=== PATIENT | female | born 1995 | race Asian ===

== ENCOUNTER 2024-03-03 07:39 | Outpatient (OUT) | payer BC, SELFPAY ==
--- NOTE | 2024-03-03 | US_ITS ---
Patient Name: JAVAN MONTESINOS MR#: [id number] : 1995 Exam Date: 03/03/2024 Ordering Doctor: DR Javy Do . RADIOLOGY REPORT PROCEDURE: MM TOMOSYNTHESIS DIAGNOSTIC BI, 03/03/2024, 06:52 US BREAST RT LIMITED, 03/03/2024, 08:14 COMPARISON: US BREAST RIGHT LIMITED, 05/23/2022. INDICATIONS: screening Calculator Name NCI Breast Cancer Risk Assessment Tool 5 Year Breast Cancer Risk Not Applicable. Lifetime Breast Cancer Risk Not Applicable. Personal Breast Cancer No Personal Ovarian Cancer No Treatments None Family Cancers None LOCATION: [facility] BREAST COMPOSITION: Extremely dense, which lowers the sensitivity of mammography. FINDINGS: DIAGNOSTIC CATEGORY 4--SUSPICIOUS FOR MALIGNANCY. FINDING DOES NOT EXHIBIT CLASSIC FINDINGS OF BREAST CANCER: RIGHT BREAST: Asymmetric soft tissue fullness within the retroareolar region when compared to left side. Ultrasound evaluation demonstrates a large predominantly anechoic cyst in the subareolar region, 2.7 x 2.6 x 1.4 cm. Along the margin of the cyst there appears to be a septation with some debris within the slightly walled-off area and blood flow along the margin or possibly into this area; hemorrhagic cyst? Posterior to the larger cyst is a separate geographic shaped hypoechoic area 0.8 x 0.6 x 0.4 cm with peripheral blood flow; complex cyst versus hypoechoic mass. Ultrasound-guided cyst aspiration for cytology and subsequent biopsy of the deeper lesion is recommended. Alternatively, follow-up ultrasound evaluation in 3 months could be performed to document persistence of a mass versus resolution of possible hemorrhagic cyst(s). LEFT BREAST: No significant suspicious finding. RECOMMENDATIONS: ULTRASOUND-GUIDED CORE BIOPSY: RIGHT BREAST ULTRASOUND-GUIDED CYST ASPIRATION: RIGHT BREAST PLEASE NOTE: A NORMAL MAMMOGRAM DOES NOT EXCLUDE THE POSSIBILITY OF BREAST CANCER. A CLINICALLY SUSPICIOUS PALPABLE LUMP SHOULD BE BIOPSIED. Dictated by: Hoang Newell M.D. on 03/03/2024 at 08:35 Approved by: Hoang Newell M.D. on 03/03/2024 at 08:49
--- NOTE | 2024-03-03 07:42 | MM_ITS ---
Patient Name: JAVAN MONTESINOS MR#: [id number] : 1995 Exam Date: 03/03/2024 Ordering Doctor: DR Javy Do . RADIOLOGY REPORT PROCEDURE: MM TOMOSYNTHESIS DIAGNOSTIC BI, 03/03/2024, 06:52 US BREAST RT LIMITED, 03/03/2024, 08:14 COMPARISON: US BREAST RIGHT LIMITED, 05/23/2022. INDICATIONS: screening Calculator Name NCI Breast Cancer Risk Assessment Tool 5 Year Breast Cancer Risk Not Applicable. Lifetime Breast Cancer Risk Not Applicable. Personal Breast Cancer No Personal Ovarian Cancer No Treatments None Family Cancers None LOCATION: [facility] BREAST COMPOSITION: Extremely dense, which lowers the sensitivity of mammography. FINDINGS: DIAGNOSTIC CATEGORY 4--SUSPICIOUS FOR MALIGNANCY. FINDING DOES NOT EXHIBIT CLASSIC FINDINGS OF BREAST CANCER: RIGHT BREAST: Asymmetric soft tissue fullness within the retroareolar region when compared to left side. Ultrasound evaluation demonstrates a large predominantly anechoic cyst in the subareolar region, 2.7 x 2.6 x 1.4 cm. Along the margin of the cyst there appears to be a septation with some debris within the slightly walled-off area and blood flow along the margin or possibly into this area; hemorrhagic cyst? Posterior to the larger cyst is a separate geographic shaped hypoechoic area 0.8 x 0.6 x 0.4 cm with peripheral blood flow; complex cyst versus hypoechoic mass. Ultrasound-guided cyst aspiration for cytology and subsequent biopsy of the deeper lesion is recommended. Alternatively, follow-up ultrasound evaluation in 3 months could be performed to document persistence of a mass versus resolution of possible hemorrhagic cyst(s). LEFT BREAST: No significant suspicious finding. RECOMMENDATIONS: ULTRASOUND-GUIDED CORE BIOPSY: RIGHT BREAST ULTRASOUND-GUIDED CYST ASPIRATION: RIGHT BREAST PLEASE NOTE: A NORMAL MAMMOGRAM DOES NOT EXCLUDE THE POSSIBILITY OF BREAST CANCER. A CLINICALLY SUSPICIOUS PALPABLE LUMP SHOULD BE BIOPSIED. Dictated by: Hoang Newell M.D. on 03/03/2024 at 08:35 Approved by: Hoang Newell M.D. on 03/03/2024 at 08:49
== END 2024-03-03 07:40 | disposition home or self-care (01) ==
LOC: MAMMO 07:39
PROVIDERS: PCP Internal Medicine; Visit Provider Obstetrics & Gynecology
DX: N63.0 Unspecified lump in unspecified breast (principal)
CPT/HCPCS: 76642; 77066; G0279

== ENCOUNTER 2024-03-11 13:17 | Day surgery (SDC) | payer BC, SELFPAY ==
--- NOTE | 2024-03-11 13:25 | US_ITS ---
[address] [address] Patient Name: JAVAN MONTESINOS MRN: [id number] date: 1995 Sex: F Assigned Patient Location: US Current Patient Location: US Accession/Order Number: [id number] Exam Date: 03/11/2024 13:26 Report Date: 03/11/2024 14:53 At the request of: GERONIMO CAMPOS Procedure: US breast vac bx w/ clip RT EXAM: US breast vac bx w/ clip RT HISTORY: Right Breast Subareolar Mass N63.41, Abnormal Mammogram COMPARISON: Diagnostic mammography and right breast ultrasound 03/03/2024 TECHNIQUE: After obtaining informed consent, ultrasound-guided biopsy was performed in the usual sterile manner. The location of the biopsy was then marked as indicated below. FINDINGS: Specimen #, Location: 4 core specimens; subareolar right breast. Approximately 5 cc thin, slightly tannish fluid aspirated from subareolar cyst. Biopsy Needle: 13 gauge vacuum core biopsy needle. 18-gauge needle for cyst aspiration. Marker(s): A single metallic marker was placed in the appropriate targeted location. Medication: Buffered 1% Lidocaine with epinephrine administered locally. Complications: None. Pathology: Pending. US/US breast vac bx w/ clip RT IMPRESSION: 1. Uneventful ultrasound-guided breast biopsy. 2. Pathology results are pending. An addendum to this report will be provided after pathology results are available. Electronically authenticated by: AUSTIN WILSON Date: 03/11/2024 14:53
--- NOTE | 2024-03-11 13:26 | MM_ITS ---
Patient Name: JAVAN MONTESINOS MR#: [id number] : 1995 Exam Date: 03/11/2024 Ordering Doctor: DR Javy Do . This report includes an Addendum and supersedes previous reports for this exam. RADIOLOGY REPORT PROCEDURE: MM POST BIOPSY RT COMPARISON: MM TOMOSYNTHESIS DIAGNOSTIC BI, 03/03/2024. INDICATIONS: Subareolar Mass Right Breast, Abnormal Mammogram BREAST COMPOSITION: The breasts are extremely dense, which lowers the sensitivity of mammography. FINDINGS: BIOPSY MARKER: A metallic marker has been placed in the targeted location within the subareolar right breast. BREAST FINDINGS: Expected post biopsy findings. RECOMMENDATIONS: Dictated by: Hoang Newell M.D. on 03/11/2024 at 16:06 Approved by: Hoagn Newell M.D. on 03/11/2024 at 16:06 ADDENDUM: FINDINGS: DIAGNOSTIC CATEGORY 3--PROBABLY BENIGN FINDING. THE FOLLOWING FINDING(S) HAS A HIGH PROBABILITY OF A BENIGN ETIOLOGY: RECOMMENDATIONS: SHORT TERM FOLLOW-UP DIAGNOSTIC MAMMOGRAM RIGHT BREAST IN 6 MONTHS. Dictated by: Hoang Newell M.D. on 03/24/2024 at 13:29 Approved by: Hoang Newell M.D. on 03/24/2024 at 13:30
[2024-03-11 13:30] VITALS: BP 113/61; PULSE 76; O2SAT 100
[2024-03-11] MEDS: LIDOCAINE HCL 10 ML, SODIUM BICARBONATE 1 MEQ INJ (14:05)
[2024-03-11] MEDS: LIDOCAINE HCL/EPINEPHRINE 10 ML, SODIUM BICARBONATE 1 MEQ INJ (14:05)
--- NOTE | 2024-03-11 15:33 | SUR.PREOP ---
03/04/24 Instructed pt on procedure, date, time, and prep.
== END 2024-03-11 14:45 | disposition home or self-care (01) ==
LOC: US 13:17
PROVIDERS: Radiology Diagnostic Radiology; PCP Internal Medicine; Visit Provider Obstetrics & Gynecology
DX: N60.31 Fibrosclerosis of right breast (principal)
CPT/HCPCS: 19083; 77065; 88112; 88305; 99999

== ENCOUNTER 2024-03-31 22:04 | Outpatient (REF) | payer BC, SELFPAY ==
[2024-04-06 18:07] LABS: Age Gdln ACOG Testing Note (.); HPV Aptima Negative (Negative); IGP, Aptima HPV, rfx 16/18,45 Note (.)
== END 2024-03-31 22:05 | disposition home or self-care (01) ==
LOC: LAB 22:04
PROVIDERS: PCP Internal Medicine; Visit Provider Physician Assistant
DX: Z01.419 Encounter for gynecological examination (general) (routine) without abnormal findings (principal)
CPT/HCPCS: 87624; G0145

== ENCOUNTER 2025-04-06 19:58 | Outpatient (REF) | payer BC, SELFPAY ==
[2025-04-11 23:07] LABS: Age Gdln ACOG Testing Note (.); HPV Aptima Negative (Negative); IGP, Aptima HPV, rfx 16/18,45 Note (.)
== END 2025-04-06 19:59 | disposition home or self-care (01) ==
LOC: LAB 19:58
PROVIDERS: PCP Internal Medicine; Visit Provider Physician Assistant
DX: Z01.419 Encounter for gynecological examination (general) (routine) without abnormal findings (principal)
CPT/HCPCS: 87624; 88175